=== PATIENT | female | born 1985 | race Two or more races ===

== ENCOUNTER 2024-01-31 21:47 | Emergency (ER) | payer BC ==
[2024-01-31 21:58] VITALS: BMI 44.3
[2024-01-31] MEDS ORDERED: diazePAM 5 MG TABLET ONE (22:29)
[2024-01-31] MEDS ORDERED: METOCLOPRAMIDE HCL INJECTION 10 MG/2 ML VIAL ONE (22:30)
[2024-01-31] MEDS ORDERED: ACETAMINOPHEN INJECTION 100 ML ONE (22:30)
[2024-01-31] MEDS: METOCLOPRAMIDE HCL INJECTION 10 MG/2 ML VIAL IVPUSH ONE (22:49)
[2024-01-31] MEDS: diazePAM 5 MG TABLET PO ONE (22:49)
[2024-01-31] MEDS: ACETAMINOPHEN 1000 MG/100 ML BAG IVPB ONE (22:49)
[2024-01-31 22:51] LABS: BASO % 0.8 % (0-2.0); EOS % 4.1 % (0-4.5); HEMATOCRIT 34.6 % (32.4-45.2); HEMOGLOBIN 11.5 GM/dL (10.7-15.3); LYMPH % 30.5 % (8-40); MCH 28.3 pg (25.7-33.7); MCHC 33.3 g/dl (32.0-36.0); MEAN CELL VOLUME 84.9 fl (80-96); MEAN PLT VOLUME 7.2 fl (7.5-11.1); MONO % 5.5 % (3.8-10.2); NEUT % 59.1 % (42.8-82.8); PLATELET COUNT 372 10^3/uL (134-434); RBC 4.07 M/mm3 (3.60-5.2); RDW 13.5 % (11.6-15.6); WHITE BLOOD COUNT 4.3 K/mm3 (4.0-10.0)
[2024-01-31 23:14] LABS: POTASSIUM 4.4 mmol/L (3.5-5.1)
[2024-01-31 23:15] LABS: ALBUMIN 3.8 g/dl (3.4-5.0); BLOOD UREA NITROGEN 17.6 mg/dL (7-18); CALCIUM 9.2 mg/dL (8.5-10.1)
[2024-01-31 23:19] LABS: CREATININE 0.8 mg/dL (0.55-1.3)
[2024-01-31 23:21] LABS: BILIRUBIN,TOTAL 0.3 mg/dL (0.2-1); TOT PROT 7.3 g/dl (6.4-8.2)
[2024-01-31] MEDS: LACTATED RINGERS SOLUTION 1000 ML INFUS.BAG IV ONE (23:33)
[2024-01-31] MEDS ORDERED: KETOROLAC TROMETHAMINE 15 MG/ML VIAL ONE (23:34)
[2024-01-31] MEDS: KETOROLAC TROMETHAMINE 15 MG/ML VIAL IVPUSH ONE (23:35)
[2024-01-31 23:37] LABS: ERYTHROCYTE SEDIMENTATION RATE 22 mm/hr (0-20)
[2024-02-01 00:15] VITALS: BP 112/72; PULSE 70
[2024-02-01 00:34] VITALS: RESP 16; TEMP 98.4
== END 2024-02-01 00:42 | disposition home or self-care (01) ==
LOC: JER 21:47
PROC: 3E033NZ Introduction of Analgesics, Hypnotics, Sedatives into Peripheral Vein, Percutaneous Approach (ICD-10-PCS; principal; 2024-01-31)
PROC: 3E033GC Introduction of Other Therapeutic Substance into Peripheral Vein, Percutaneous Approach (ICD-10-PCS; 2024-01-31)
PROC: 3E033GC Introduction of Other Therapeutic Substance into Peripheral Vein, Percutaneous Approach (ICD-10-PCS; 2024-01-31)
PROC: 3E0333Z Introduction of Anti-inflammatory into Peripheral Vein, Percutaneous Approach (ICD-10-PCS; 2024-01-31)
DX: R51.9 Headache, unspecified (principal); I10 Essential (primary) hypertension
CPT/HCPCS: 36415; 80053; 85025; 85651; 93005; 93010; 99284-25; J0131